=== PATIENT | female | born 1960 | race Caucasian/White ===

== ENCOUNTER 2017-09-28 21:50 | Emergency (ER) | payer OTHER ==
--- NOTE | 2017-09-28 22:32 | ER Document Report ---
HPI - HPI Patient complains to provider of: Left elbow injury Onset: This morning - 010 Onset/Duration: Sudden Quality of pain: Achy Pain Level: 5 Context: 57-year-old female was leaving a client's house and stumbled on steps hitting her left elbow. It is bruised and she says it is hurting more when she flexes her elbow today than it did l early this morning. Associated Symptoms: None Exacerbated by: Movement - Flexion of the elbow Relieved by: Denies Similar symptoms previously: No Recently seen / treated by doctor: No - ROS ROS below otherwise negative: Yes Systems Reviewed and Negative: Yes All other systems reviewed and negative Past Medical History - General Information source: Patient - Social History Smoking Status: Current Every Day Smoker Frequency of alcohol use: None Drug Abuse: None Lives with: Spouse/Significant other Family History: Reviewed & Not Pertinent - Medical History Medical History: Negative Surgical Hx: Negative Vertical Provider Document - CONSTITUTIONAL Agree With Documented VS: Yes Exam Limitations: No Limitations - INFECTION CONTROL TRAVEL OUTSIDE OF THE [place] IN LAST 30 DAYS: No - NECK Neck: Supple - MUSCULOSKELETAL/EXTREMETIES Musculoskeletal/Extremeties: MAEW, FROM, Tender, Edema, Eccymosis - Left olecranon - NEURO Level of Consciousness: Awake Motor/Sensory: No Motor Deficit, No Sensory Deficit - DERM Integumentary: Warm, Dry Course - Re-evaluation Re-evalutation: 09/28/17 23:23 X-rays negative per radiologist - Vital Signs Vital signs: Temp Pulse Resp BP Pulse Ox 97.9 F 85 18 138/76 H 95 09/28/17 22:25 09/28/17 22:25 09/28/17 22:25 09/28/17 22:25 09/28/17 22:25 Procedures - Immobilization Left Elbow Time completed: 23:30 Immobilizer type: Sling Performed by: Other - [employer]CHIT[employer] Post-Proc Neuro Vasc Exam: Normal Alignment checked and good: Yes Discharge - Discharge Clinical Impression: Left elbow contusion, Bruising Condition: Good Disposition: HOME, SELF-CARE Instructions: Temporary Sling ([facility]), Acetaminophen, Ibuprofen (General) ([facility]), Contusion ([facility]) Additional Instructions: Sling for comfort Motrin Tylenol Copy of negative radiology report given to you Prescriptions: Ibuprofen [Motrin 600 mg Tablet] 600 mg PO Q8HP PRN #20 tablet PRN Reason: Forms: Return to Work
--- NOTE | 2017-09-28 23:13 | RADIOLOGY REPORT (SQ) ---
EXAM DESCRIPTION: ELBOW LEFT OVER 2 VIEWS CLINICAL HISTORY: 57 years, Female, fall COMPARISON: None. NUMBER OF VIEWS: 4 Findings: Moderate swelling of the posterior left elbow. Bones, joints, and soft tissues of ELBOW LEFT 4 VIEWS appear otherwise intact. No joint effusion. IMPRESSION: Moderate posterior elbow swelling or olecranon bursitis of the left elbow.
[2017-09-28 23:43] VITALS: BP 135/73
== END 2017-09-28 23:41 | disposition home or self-care (01) ==
LOC: ER 21:50
DX: S50.02XA Contusion of left elbow, initial encounter (principal); W10.9XXA Fall (on) (from) unspecified stairs and steps, initial encounter; Y93.89 Activity, other specified; Y92.009 Unspecified place in unspecified non-institutional (private) residence as the place of occurrence of the external cause; F17.200 Nicotine dependence, unspecified, uncomplicated
CPT/HCPCS: 99283

== ENCOUNTER 2019-07-16 18:25 | Emergency (ER) | payer OTHER ==
[2019-07-16 18:31] VITALS: BP 139/81
--- NOTE | 2019-07-16 19:47 | ER Document Report ---
ED General - General Chief Complaint: Abscess Stated Complaint: ABSCESS Time Seen by Provider: 07/16/19 19:41 Primary Care Provider: [facility] [Provider Group] - Follow up in 3-5 days JONNATHAN LAWLER MD [COMMUNITY BASED STAFF] - Follow up in 3-5 days Notes: 58-year-old female presents for possible dental abscess that started over the weekend. Patient states she broke her lower tooth and states it started to swell. Patient states she has been unable to keep in her lower plate of her dentures due to this. Patient also says associated fever that has been relieved with Excedrin. Patient states she has an appointment on the of this month with the dentist. TRAVEL OUTSIDE OF THE [place] IN LAST 30 DAYS: No - Related Data Allergies/Adverse Reactions: No Known Allergies Allergy (Unverified 09/28/17 21:51) Past Medical History - General Information source: Patient - Social History Smoking Status: Unknown if Ever Smoked Family History: Reviewed & Not Pertinent Renal/ Medical History: Denies: Hx Peritoneal Dialysis Review of Systems - Review of Systems Notes: Constitutional: Positive for fever. HENT: Positive for dental pain. Negative for sore throat. Eyes: Negative for visual changes. Cardiovascular: Negative for chest pain. Respiratory: Negative for shortness of breath. Gastrointestinal: Negative for abdominal pain, vomiting or diarrhea. Genitourinary: Negative for dysuria. Musculoskeletal: Negative for back pain. Skin: Negative for rash. Neurological: Negative for headaches, weakness or numbness. 10 point ROS negative except as marked above and in HPI. Physical Exam - Vital signs Vitals: Temp Pulse Resp BP Pulse Ox 98.4 F 97 20 139/81 H 94 07/16/19 18:30 07/16/19 18:30 07/16/19 18:30 07/16/19 18:30 07/16/19 18:30 - Notes Notes: GENERAL: Well-appearing, well-nourished and in no acute distress. HEAD: Atraumatic, normocephalic. EYES: Extraocular movements intact, sclera anicteric, conjunctiva are normal. ENT: Mild lower right mandibular swelling, no erythema. Gum swelling at where teeth #31 and #32 would be. No fractured teeth noted. Mild drainage noted. TMs normal, nares patent, oropharynx clear without exudates. Moist mucous membranes. NECK: Normal range of motion, supple without lymphadenopathy or JVD. EXTREMITIES: Normal range of motion, no pitting or edema. No clubbing or cyanosis. NEUROLOGICAL: Cranial nerves II through XII grossly intact. Normal speech, normal gait. PSYCH: Normal mood, normal affect. SKIN: Warm, Dry, normal turgor, no rashes or lesions noted. Course - Re-evaluation Re-evalutation: 07/16/19 nontoxic, well-appearing 58-year-old female presents with dental pain/gum swelling. Patient's exam consistent with gum swelling where teeth numbers 31 and #32 would be. Patient has mild facial swelling as well. No erythema noted to skin. Patient is afebrile. Patient is able to fully open mouth. Generalized dental decay noted. Patient has an appointment with her dentist on the . Patient to be prescribed penicillin and pain control. Patient given strict return precautions. Patient given close follow-up with dentist and PCP. Patient voices understanding and agrees with plan of care. - Vital Signs Vital signs: Temp Pulse Resp BP Pulse Ox 98.4 F 97 20 139/81 H 94 07/16/19 18:30 07/16/19 18:30 07/16/19 18:30 07/16/19 18:30 07/16/19 18:30 Discharge - Discharge Clinical Impression: Dental abscess Condition: Stable Disposition: HOME, SELF-CARE Instructions: Penicillin V K ([facility]) Additional Instructions: Your prescriptions have been sent to your pharmacy. Please take penicillin as prescribed and finish all doses even if you feel better. Please take ibuprofen as prescribed and take tramadol for breakthrough pain. Follow-up with your dentist in 1 week. Please follow-up with your primary care doctor or 1 of the clinics listed in 3 to 5 days. Return immediately to ER if you start having any worsening symptoms, including worsening swelling, redness to the outside of your face, drainage, fever not controlled by medication, chest pain, shortness of breath, or any other symptoms that are concerning to you. Prescriptions: Ibuprofen [Motrin 800 mg Tablet] 800 mg PO Q8H PRN #30 tab PRN Reason: Penicillin V Potassium [Penicillin Vk 500 mg Tablet] 500 mg PO QID #28 tablet Tramadol HCl [Ultram 50 mg Tablet] 50 mg PO ASDIR PRN #20 tablet PRN Reason: Referrals: JONNATHAN LAWLER MD [COMMUNITY BASED STAFF] - Follow up in 3-5 days [facility] [Provider Group] - Follow up in 3-5 days
[2019-07-16] MEDS ORDERED: TRAMADOL HCL 50 MG TABLET PO ONE (20:49)
== END 2019-07-16 20:56 | disposition home or self-care (01) ==
LOC: ER 18:25
DX: K04.7 Periapical abscess without sinus (principal); R50.9 Fever, unspecified